=== PATIENT | male | born 1950 | race Two or more races ===

== ENCOUNTER 2018-11-24 05:55 | Day surgery (SDC) | payer OTHER ==
[2018-11-24] MEDS ORDERED: TRAMADOL HCL50 MG PO (09:15)
[2018-11-24] MEDS ORDERED: TYLENOL EXTRA500 MG PO (09:15)
[2018-11-24] MEDS ORDERED: MIRALAX17 GM PO (09:15)
[2018-11-24] MEDS ORDERED: ZOFRAN4 MG PO (09:15)
[2018-11-24] MEDS ORDERED: NEURONTIN300 MG PO (09:15)
== END 2018-11-24 13:55 | disposition home or self-care (01) ==
LOC: CIR.AMB 05:55
DX: K40.90 Unilateral inguinal hernia, without obstruction or gangrene, not specified as recurrent (principal); K42.9 Umbilical hernia without obstruction or gangrene